=== PATIENT | female | born 1935 | race Caucasian/White ===

== ENCOUNTER 2018-09-20 13:00 | Inpatient (IN) | payer MEDICARE, BC ==
[2018-10-02] MEDS ORDERED: CEFAZOLIN 2 Gram 2 GM/50 ML BAG IVPB ONE (06:00)
[2018-10-02] MEDS ORDERED: MECLIZINE 25 MG TABLET PO ONE (06:00)
[2018-10-02] MEDS ORDERED: CELECOXIB 100 MG CAPSULE PO ONE (06:00)
[2018-10-02] MEDS ORDERED: VANCOMYCIN HCL 1,000 MG in DEXTROSE 5 % IN WATER 250 ML IVPB ONE ×2 (06:00)
[2018-10-02] MEDS ORDERED: METOCLOPRAMIDE 10 MG TABLET PO ONE (06:00)
[2018-10-02] MEDS ORDERED: FAMOTIDINE 20MG TABLET PO ONE (06:00)
[2018-10-02 12:07] LABS: ABO GROUP A; ANTIBODY SCREEN NEGATIVE (NEGATIVE); RH TYPE POSITIVE
[2018-10-02] MEDS ORDERED: ROPIVACAINE HCL (NAROPIN) /PF 5MG/ML 20ML VIAL IV ONE (14:00)
[2018-10-02] MEDS ORDERED: GLYCOPYRROLATE 0.2 MG/ML ML IV ONE (14:00)
[2018-10-02] MEDS ORDERED: PROPOFOL 10 MG/ML VIAL IV ONE (14:00)
[2018-10-02] MEDS ORDERED: LIDOCAINE 2% MDV (20MG/ML) 20ML VIAL IV ONE (14:00)
[2018-10-02] MEDS ORDERED: EPHEDRINE SULFATE 50 MG/ML ML IV ONE (14:00)
[2018-10-02] MEDS ORDERED: MIDAZOLAM HCL 2MG/2ML VIAL IV ONE (14:00)
[2018-10-02] MEDS ORDERED: DEXAMETHASONE 4 MG/ML 1ML VIAL IVP ONE (14:00)
[2018-10-02] MEDS ORDERED: BISACODYL 10 MG SUPP RC PRN (15:01)
[2018-10-02] MEDS ORDERED: TRAMADOL HCL 50 MG TABLET PO PRN (15:01)
[2018-10-02] MEDS ORDERED: NALOXONE 0.4 MG/1 ML VIAL IVP PRN (15:01)
[2018-10-02] MEDS ORDERED: HYDROMORPHONE HCL 2 MG/ML VIAL IM PRN (15:01)
[2018-10-02] MEDS ORDERED: ACETAMINOPHEN W/ CODEINE 300MG/60MG TABLET PO PRN ×2 (15:01)
[2018-10-02] MEDS ORDERED: KETOROLAC 30 MG/ML VIAL IVP PRN ×2 (15:01)
[2018-10-02] MEDS ORDERED: MAGNESIUM HYDROXIDE 30 ML UDC PO PRN (15:01)
[2018-10-02] MEDS ORDERED: ONDANSETRON HCL IV 4 MG/2 ML VIAL IVP PRN (15:01)
[2018-10-02] MEDS ORDERED: ZOLPIDEM TARTRATE 5 MG TABLET PO PRN (15:01)
[2018-10-02] MEDS ORDERED: DIPHENHYDRAMINE HCL 25 MG CAPSULE PO PRN (15:01)
[2018-10-02] MEDS ORDERED: AL HYDROX/MAG HYDROX 30ML UD PO PRN (15:01)
[2018-10-02] MEDS ORDERED: POTASSIUM CHLORIDE/D5-0.9%NACL 20 MEQ/1,000 ML BAG IV SCH (16:00)
[2018-10-02] MEDS: HYDROCODONE/APAP 10/325 TABLET PO PRN (16:14)
[2018-10-02] MEDS ORDERED: 0.9 % SODIUM CHLORIDE 1000ML 1,000 ML IV PRN ×2 (16:32→16:56)
[2018-10-02] MEDS: CEFAZOLIN 2 Gram 2 GM/50 ML BAG IVPB SCH (22:24)
[2018-10-02] MEDS: DOCUSATE SODIUM 100 MG CAPSULE PO SCH (22:28)
[2018-10-02] MEDS: ACETAMINOPHEN 500 MG TABLET PO SCH (22:28)
[2018-10-02] MEDS: SIMVASTATIN 10MG TABLET PO SCH (22:29)
[2018-10-03] MEDS: HYDROCODONE/APAP 10/325 TABLET PO PRN ×3 (00:30→18:43)
[2018-10-03] MEDS: CEFAZOLIN 2 Gram 2 GM/50 ML BAG IVPB SCH ×2 (06:12→13:38)
[2018-10-03] MEDS: PANTOPRAZOLE SODIUM 40 MG TABLET PO SCH (06:13)
[2018-10-03 08:46] LABS: HEMATOCRIT 36.5 % (35.0-47.0); HEMOGLOBIN 10.8 gm/dl (11.6-16.0)
[2018-10-03 09:05] LABS: BLOOD UREA NITROGEN 20 mg/dL (8-23); CREATININE 0.7 mg/dL (0.5-0.9); EST GLOMERULAR FILTRATION RATE > 60 mL/min; GLUCOSE,RANDOM 147 mg/dL (74-109)
[2018-10-03] MEDS ORDERED: TRANEXAMIC ACID 1,000 MG/10 ML ML IV ONE (10:55)
[2018-10-03] MEDS ORDERED: BUPIVACAINE 0.5% W/EPI MPF 30 ML VIAL IVP ONE (10:55)
[2018-10-03] MEDS: AMLODIPINE BESYLATE 5MG TAB PO SCH (10:58)
[2018-10-03] MEDS: METOPROLOL SUCC 50 MG TABLET PO SCH (10:58)
[2018-10-03] MEDS: ACETAMINOPHEN 500 MG TABLET PO SCH ×2 (10:58→21:13)
[2018-10-03] MEDS: FERROUS SULFATE 325 MG TAB PO SCH (10:59)
[2018-10-03] MEDS: DOCUSATE SODIUM 100 MG CAPSULE PO SCH ×2 (10:59→21:24)
[2018-10-03] MEDS: FUROSEMIDE 40 MG TABLET PO SCH (10:59)
[2018-10-03] MEDS: RIVAROXABAN 10 MG TABLET PO SCH (10:59)
--- NOTE | 2018-10-03 12:01 | Rehab Evaluation ---
Patient Information - Patient Information Diagnosis: R knee OA Ordered Treatment: PT Evaluate and Treat Status: Initial Evaluation Surgery: Yes (R knee TKA) Date of Surgery: 10/02/18 Past Medical/Surgical Hx: PAST MEDICAL/SURGICAL HISTORY Past Surgical History DAVID OVARIAN CYST HYST LTKA BILAT CATS C SCOPES PMH - Respiratory Hx Respiratory Disorders Yes Hx Pneumonia Yes: 2 YRS AGO PMH - Cardiovascular Hx Cardiovascular Disorders Yes Hx Deep Vein Thrombosis Yes: 20 YRS AGO Hx Hypertension Yes: GOOD CONTROL WITH MEDS Exercise Tolerance Fair PMH - Neuro Hx Neurological Disorders No PMH - GI Hx Gastrointestinal Disorders Yes Hx Gastroesophageal Reflux Yes Hx Hepatitis/Jaundice Yes: 60 YRS AGO FROM GALLBLADDER Hx Pancreatitis Yes: 60 YRS AGO PMH - Hx Genitourinary Disorders No PMH - Endocrine Hx Endocrine Disorders No PMH - Musculoskeletal Hx Musculoskeletal Disorders Yes Hx Arthritis Yes: RIGHT KNEE ANKLES AND SHOULDERS Hx Fibromyalgia Yes: POSSIBLY PMH - Psych Hx Psychiatric Problems No PMH - Hematology/Oncology Hx Hematology/Oncology Yes Disorders Hx Blood Transfusion Reaction No Premorbid Status: Detail (Prior to surgery the patient was independent with all mobility without O2.) Social History: Detail (The patient lives with spouse in an apartment with an elevator and stairs (the patient uses both at times). The bathroom is equipped with a tub/shower combination, shower bench, grab bars in shower and by toilet, hand held shower, elevated toilet with riser seat. The paitent has a 2 wheeled walker.) Precautions: [place], Fall, Other (WBAT on the R LE. Patient is currently using 2L of O2.) - Time With Patient Total Time Spent With Patient (Min): 30 Treatment Procedures: Detail (Initial Evaluation, gait training) Subjective Information - Subjective Information Per Patient (The patient had complaints of R knee pain level 4 using 0-10 pain scale.) Objective Data - Mental Status Patient Orientation: Oriented x3 - Visual Perception Appears within normal limits for therapeutic activities - ROM Not within normal limits (The patient's R knee is limited as to be expected following sugery. All other LE AROM is WNL.) - Strength/Tone Not within normal limits (The patient's R LE strength was not tested however is functional ie: patient was able to complete a SLR. The patient's L LE strength WNL.) - Bed Mobility Independent (The patient was independent with supine to and from sit transfer and scooting up in bed.) - Transfers Independent (The patient was independent with sit to and from stand transfer. The patient was independent with toilet transfer with use of grab bar.) - Balance Balance Sitting: Good Balance Standing: Good - Sensation Intact - Gait Detail (The patient ambulated with 2 L of O2 a distance of 40 feet x 1 , WBAT on the R LE with front wheeled walker with supervision for safety. O2 sat. levels remained in the 90's while ambulating however, shortness of breath was noted. The patient returned to bed. When patient returned to a supine position O2 sat levels were measured at 75. Patient was able to return to normal 90 after deep breathing for aprox 15- 20 seconds.) Therapy Assessment - Therapy Assessment Detail (The patient was independent with bed mobility and transfers and required supervision for safety with ambulation. The patient's had shortness of breath with ambulation and dropping sat levels after ambulating with 2L of O2. Feel the patient is a good subacute Rehab patient due to O2 needs and shortness of breath with activity.) Patient Education - Patient Education Teaching Topic: Exercise/Activity (The patient completed the following TKA exercises: supine heel slides, SLR, ankle pumps, quad sets, gluteal sets, hamstring sets.) Response: Return Demonstration Teaching Method: Discussion, Handout Teaching Recipient: Patient Barriers To Learning: Age Related Problem List - Problem List Physical Therapy Problem List: Detail (1) Decreased R knee AROM and strength as to be expected following surgery 2) Shortness of breath and O2 requirement with ambulation and mobility. 3) Impaired ambulation on levels and stairs s/p surgery.) Goals - Goals Physical Therapy Goals: 1) The patient will ambulate with appropriate assistive device distances of 75 to 100 feet without shortness of breath WBAT on the R LE independently. 2) The patient will demonstrate good understanding of proper technique of stair climbing and ambulate on stairs with supervision for safety only. 3) The patient will tolerate 20 to 30 minutes of physical activity with one to two rest periods. Prognosis - Prognosis Good Plan - Plan Physical Therapy Plan: PT 1-2 times a day for gait training on levels and stairs.
--- NOTE | 2018-10-03 12:38 | Rehab Evaluation ---
Patient Information - Patient Information Diagnosis: R knee OA Ordered Treatment: OT Evaluate and Treat Status: Initial Evaluation Surgery: Yes (R knee TKA) Date of Surgery: 10/02/18 Past Medical/Surgical Hx: PAST MEDICAL/SURGICAL HISTORY Past Surgical History DAVID OVARIAN CYST HYST LTKA BILAT CATS C SCOPES PMH - Respiratory Hx Respiratory Disorders Yes Hx Pneumonia Yes: 2 YRS AGO PMH - Cardiovascular Hx Cardiovascular Disorders Yes Hx Deep Vein Thrombosis Yes: 20 YRS AGO Hx Hypertension Yes: GOOD CONTROL WITH MEDS Exercise Tolerance Fair PMH - Neuro Hx Neurological Disorders No PMH - GI Hx Gastrointestinal Disorders Yes Hx Gastroesophageal Reflux Yes Hx Hepatitis/Jaundice Yes: 60 YRS AGO FROM GALLBLADDER Hx Pancreatitis Yes: 60 YRS AGO PMH - Hx Genitourinary Disorders No PMH - Endocrine Hx Endocrine Disorders No PMH - Musculoskeletal Hx Musculoskeletal Disorders Yes Hx Arthritis Yes: RIGHT KNEE ANKLES AND SHOULDERS Hx Fibromyalgia Yes: POSSIBLY PMH - Psych Hx Psychiatric Problems No PMH - Hematology/Oncology Hx Hematology/Oncology Yes Disorders Hx Blood Transfusion Reaction No Premorbid Status: Detail (Prior to surgery the patient was independent with all mobility, light home mgmt, meal prep and laundry. Spouse assisted with vacuumming.) Social History: Detail (The patient lives with spouse in a second floor apartment with an elevator and stairs (the patient uses both at times). The bathroom is equipped with a tub/shower combination, shower bench, grab bars and hand held shower and a standard height toilet with riser seat. The patient has a 2 wheeled walker.) Precautions: [place], Fall, Other (WBAT on the R LE. Patient is currently using 2L of O2.) - Time With Patient Total Time Spent With Patient (Min): 40 Treatment Procedures: Detail (OT eval low complexity) Subjective Information - Subjective Information Per Patient Objective Data - Pain Pain Present: Yes (12/07) - Mental Status Patient Orientation: Oriented x3 - Visual Perception Appears within normal limits for therapeutic activities - ROM Within normal limits (Reynold UE AROM WNL) - Strength/Tone Within normal limits (Reynold UE strength WNL although patient reports shoulder arthritis that bothers her at times.) - Coordination Appears within normal limits for therapeutic activities - Bed Mobility Independent (Ind with supine to sit, sit to supine and scooting up in bed.) - Transfers Independent (Ind with sit to stand from chair and EOB heights.) - Balance Balance Sitting: Good Balance Standing: Good - Sensation Intact - Gait Detail (Pt ambulating in room with 2 wheeled walker and 2 liters of oxygen. She was very fatigued and short of breath.) - ADL's/IADL's Detail (Pt educated and able to demonstrate learning of modified LE dressing techniques including donning pants and slip on shoes. She had difficulty donning bra and socks due to fatigue.) Therapy Assessment - Therapy Assessment Detail (Pt presents with significant fatigue with mobility and self cares. She is currently using 2 liters of oxygen. Pt would benefit from continued therapy in a subacute setting to maximize safety and Ind with self cares and functional mobility as well as IADL tasks.) Problem List - Problem List Physical Therapy Problem List: Detail (1) Decreased R knee AROM and strength as to be expected following surgery 2) Shortness of breath and O2 requirement with ambulation and mobility. 3) Impaired ambulation on levels and stairs s/p surgery.) Occupational Therapy Problem List: Detail (1. Decreased endurance needed for safe and Ind ADLs/IADLs. 2. Decreased Ind with total body dressing.) Goals - Goals Physical Therapy Goals: 1) The patient will ambulate with appropriate assistive device distances of 75 to 100 feet without shortness of breath WBAT on the R LE independently. 2) The patient will demonstrate good understanding of proper technique of stair climbing and ambulate on stairs with supervision for safety only. 3) The patient will tolerate 20 to 30 minutes of physical activity with one to two rest periods. Occupational Therapy Goals: 1. Pt will be safe and Ind with total body dressing using modified dressing techniques. 2. Pt will demonstrate improved endurance to allow Ind with IADLs. Prognosis - Prognosis Good Plan - Plan Physical Therapy Plan: PT 1-2 times a day for gait training on levels and stairs. Occupational Therapy Plan: OT 2-4 times per week until discharge. Recommend short IP rehab stay to ensure safety and Ind with ADLs/IADLs.
[2018-10-03] MEDS: POTASSIUM CHLORIDE 20 MEQ TABLET PO SCH (13:00)
--- NOTE | 2018-10-03 14:54 | Physical Therapy Tx Note ---
Physical Therapy Tx Note - Treatment Note Physical Therapy Tx Note: Detail (The patient declined ambulation this pm secondary to fatigue and she was just up with nursing staff.) Physical Therapy Problem List: Detail (1) Decreased R knee AROM and strength as to be expected following surgery 2) Shortness of breath and O2 requirement with ambulation and mobility. 3) Impaired ambulation on levels and stairs s/p surgery.) Physical Therapy Goals: 1) The patient will ambulate with appropriate assistive device distances of 75 to 100 feet without shortness of breath WBAT on the R LE independently. 2) The patient will demonstrate good understanding of proper technique of stair climbing and ambulate on stairs with supervision for safety only. 3) The patient will tolerate 20 to 30 minutes of physical activity with one to two rest periods. Physical Therapy Plan: PT 1-2 times a day for gait training on levels and stairs.
[2018-10-03] MEDS: ACETAMINOPHEN 325 MG TAB PO PRN (15:54)
[2018-10-03] MEDS: SIMVASTATIN 10MG TABLET PO SCH (21:12)
[2018-10-04] MEDS: HYDROCODONE/APAP 10/325 TABLET PO PRN ×3 (01:45→22:57)
--- NOTE | 2018-10-04 05:38 | RADIOLOGY REPORT ---
EXAM: PORTABLE CHEST HISTORY: REHAB PLACEMENT. TECHNIQUE: A single frontal view of the chest was obtained. Comparison: None. FINDINGS: The cardiac silhouette is top normal in size. The thoracic aorta is calcified and tortuous. Large rounded retrocardiac opacity. Asymmetric elevation of the right hemidiaphragm. Patchy opacities in the left lung base, favor atelectasis. No definable pleural fluid collection or visible pneumothorax. IMPRESSION: 1. LEFT LUNG BASE OPACITIES, APPEARANCE MOST SUGGESTIVE OF ATELECTASIS. 2. LARGE ROUNDED RETROCARDIAC OPACITY; MAY REPRESENT A HIATAL HERNIA. JOB NUMBER: [id number] [facility]
[2018-10-04] MEDS: PANTOPRAZOLE SODIUM 40 MG TABLET PO SCH (06:08)
[2018-10-04 06:41] LABS: HEMATOCRIT 34.2 % (35.0-47.0); HEMOGLOBIN 9.9 gm/dl (11.6-16.0)
[2018-10-04 06:55] LABS: BLOOD UREA NITROGEN 20 mg/dL (8-23); CREATININE 0.8 mg/dL (0.5-0.9); EST GLOMERULAR FILTRATION RATE > 60 mL/min; GLUCOSE,RANDOM 109 mg/dL (74-109)
[2018-10-04] MEDS: ACETAMINOPHEN 325 MG TAB PO PRN ×3 (07:30→16:45)
--- NOTE | 2018-10-04 08:40 | Operative Note ---
DATE OF SURGERY: 10/02/2018 PREOPERATIVE DIAGNOSIS: End-stage arthrosis of the right knee. POSTOPERATIVE DIAGNOSIS: End-stage arthrosis of the right knee. OPERATION: Cemented right total knee arthroplasty using Gill and Nephew Lesli II components with a size 4 cobalt chrome femur, a size 3 stem tibia baseplate, a 9 mm lipped tibial insert, and a 35 mm all plastic patella. Staff Surgeon: Rober Lubin MD Anesthesia: Spinal. PREPARATION: Chloraprep. INDIVIDUAL CONSIDERATIONS: None. PROCEDURE: The patient was taken to the operating room, placed supine on the operating room table. She had a successful induction of spinal anesthetic. The right lower extremity was prepped and draped in the usual fashion. The limb was elevated and tourniquet was inflated to 250 mmHg. The patient had a midline approach to the knee. Sharp dissection carried down through skin and subcutaneous tissue. Small veins were coagulated with a Bovie. A medial arthrotomy was performed. The patella was everted and the knee was flexed. The patient had exposed bone on the medial and especially lateral compartment and in the patellofemoral compartment. Fat pad was resected, ACL was sacrificed, provisional anterior meniscectomies were performed. The capsule was released from the medial proximal tibia. The initial femoral co pilot hole was then made freehand. The intramedullary femoral cutting jig was placed. It was cut in 7.0 degrees of valgus and adjusted for rotation and secured with pins for a 10 mm resection. The initial transverse cut was then made. The skin guide was placed in the anterior and posterior co pilot holes. It was found that a size 4 would be appropriate. The anterior and posterior cuts followed by chamfer cuts were made. Osteophytes removed, and a size 4 trial was placed and found to fit well. The tibia was brought forward, and the remainder of the meniscal remnants removed with a Bovie. The extraarticular tibial cutting jig was placed. It was cut in neutral with a 3-degree AP slope. Care was taken to adjust for rotation and flexion using the extraarticular alignment guide and bony landmarks. It was set for a 9 mm resection keyed off the high medial side and secured with pins. When cutting the tibia, care was taken to preserve the PCL insertion on the tibia. After removing osteophytes, I could fit a size 3 baseplate trial. It was adjusted for rotation and secured with pins. With a 9 mm lipped trial and femoral trial, there was excellent motion and stability, ligamentous balance, rotation alignment, patellofemoral tracking were normal. No lateral release was required. The femoral co pilot holes were impacted and the tri-flange tibial stamp was impacted and these trial components were removed. The tourniquet was let down briefly to get bleeders posteriorly and then placed back up again. I then thoroughly irrigated out the knee with pulsatile Betadine and saline to remove any visual or palpable debris. Bone surfaces were then dried. A size 3 stem tibia baseplate was cemented into place followed by impaction of the 9 mm lipped tibial insert followed by cementing in the size 4 cobalt chrome femur followed by cementing in the 35 mm patella. The implant surfaces were compressed, excess cement was removed, and after the cement had set, there was excellent motion and stability, ligamentous balance, rotation alignment, and patellofemoral tracking were normal. No lateral release was required. Again thorough irrigation to remove visual or palpable debris. Tourniquet was let down. Hemostasis was obtained with a Bovie. I then infiltrate the skin, subcutaneous tissue, and periosteum with 30 mL of 0.5% Marcaine with epinephrine. The capsule was then closed with a running #2 quill, subcu was closed in layers with running 0 quill, skin was closed with randy. The patient did receive 1 g of tranexamic acid preoperatively IV. I mixed 1 g of tranexamic acid with 30 mL of saline and injected into the knee through a sterile 18-gauge needle and a sterile bulky compressive dressing was applied. The patient tolerated the procedure well. Needle and sponge counts were correct. Estimated blood loss was minimal, and she was taken back to recovery in good condition. There were no complications. HAYLEE
[2018-10-04] MEDS: ACETAMINOPHEN 500 MG TABLET PO SCH ×2 (09:19→22:59)
[2018-10-04] MEDS: METOPROLOL SUCC 50 MG TABLET PO SCH (09:22)
[2018-10-04] MEDS: RIVAROXABAN 10 MG TABLET PO SCH (09:22)
[2018-10-04] MEDS: FERROUS SULFATE 325 MG TAB PO SCH (09:23)
[2018-10-04] MEDS: DOCUSATE SODIUM 100 MG CAPSULE PO SCH ×2 (09:23→22:57)
[2018-10-04] MEDS: POTASSIUM CHLORIDE 20 MEQ TABLET PO SCH (09:23)
[2018-10-04] MEDS: AMLODIPINE BESYLATE 5MG TAB PO SCH (09:24)
[2018-10-04] MEDS: FUROSEMIDE 40 MG TABLET PO SCH (09:24)
--- NOTE | 2018-10-04 11:49 | Physical Therapy Tx Note ---
Physical Therapy Tx Note - Treatment Note Tolerated: Good Total Time Spent With Patient: 25 Physical Therapy Tx Note: Detail (Pt in bed upon arrival, awake/alert, cooperative for therapy. Respiratory therapist present to assess O2 sat with mobility. Independent with bed mobility with HOB elevated; good sitting balance. Assisted to don robe. Ambulated from bedside out to hallway and back to bathroom with front wheeled walker and contact guard assist, supervision for toilet transfers, ambulated to bedside chair. Total ambulation distance was about 85 feet. Pt reported little pain/discomfort; O2 sat ranged from 86% to 94 %. RT was to re-assess O2 sat w/o supplemental oxygen while pt was sitting up. Pt left up in chair w/bedside table and call light in reach. Nrsg notified.) Physical Therapy Problem List: Detail (1) Decreased R knee AROM and strength as to be expected following surgery 2) Shortness of breath and O2 requirement with ambulation and mobility. 3) Impaired ambulation on levels and stairs s/p surgery.) Physical Therapy Goals: 1) The patient will ambulate with appropriate assistive device distances of 75 to 100 feet without shortness of breath WBAT on the R LE independently. 2) The patient will demonstrate good understanding of proper technique of stair climbing and ambulate on stairs with supervision for safety only. 3) The patient will tolerate 20 to 30 minutes of physical activity with one to two rest periods. Physical Therapy Plan: PT 1-2 times a day for gait training on levels and stairs.
[2018-10-04] MEDS ORDERED: TRANEXAMIC ACID 1,000 MG/10 ML ML IV ONE (16:03)
[2018-10-04] MEDS ORDERED: 0.9 % SODIUM CHLORIDE 10 ML VIAL IVP ONE (16:03)
[2018-10-04 16:21] LABS: BASO % 0.3 % (0-6); EOS % 3.7 % (0-6); GRAN % 77.9 % (47-80); HEMATOCRIT 36.5 % (35.0-47.0); HEMOGLOBIN 10.8 gm/dl (11.6-16.0); LYMPH % 9.6 % (16-45); MEAN CELL VOLUME 88.8 fl (81-97); MEAN CORPUSCULAR HEMOGLOBIN 26.2 pg (27-33); MEAN CORPUSCULAR HGB CONC 29.6 g/dl (32-36); MEAN PLATELET VOLUME 10.1 fl (7.4-10.4); MONO % 8.5 % (0-9); PLATELET COUNT 331 K/uL (130-400); RED BLOOD COUNT 4.11 M/uL (3.80-5.40); RED CELL DISTRIBUTION WIDTH 18.1 % (11.5-14.5); WHITE BLOOD COUNT W/O DIFF 11.5 K/uL (4.2-12.2)
[2018-10-04 16:32] LABS: INR 1.2; PARTIAL THROMBOPLASTIN TIME 32.4 SECONDS (24.5-39.1)
[2018-10-04 16:33] LABS: BLOOD UREA NITROGEN 16 mg/dL (8-23); CREATININE 0.7 mg/dL (0.5-0.9); EST GLOMERULAR FILTRATION RATE > 60 mL/min
[2018-10-04 16:36] LABS: GLUCOSE,RANDOM 124 mg/dL (74-109)
--- NOTE | 2018-10-04 16:38 | Consult ---
Consult Order Detail - Reason for Consult Consult Date: 10/04/18 Consult Order Detail: Continued need for oxygen supplementation post op right TKA 10/02/18 - Chief Complaint Chief Complaint: PRIMARY OSTEOARTHRITIS RIGHT KNEE HPI Consult - History of Present Illness Admitting Diagnosis: djd right knee History of Present Illness: Medical team consulted today by request of Dr Lubin for persistent hypoxia s/p elective right TKA 10/02/2018. Katalina Vidales is an otherwise healthy 83 y/o female with no previous chronic respiratory illness that has required 4L O2 since right TKA. Nursing reports she desats to SPO2 in the 80s at night and is in the upper 80s on room air at rest during the day.Patient denies any previous hx of MONA, COPD or asthma. She does not a hx of bilat DVT 26 years ago and has had no problems since. Was not on long-term anticoagulation therapy prior to surgery and is currently taking Xarelto 10mg as post-op VTE prophylaxis. She has remained afebrile, no significant saturation of PCOS dressing. SCD have been in place since surgery. She denies chest pain, palpitations or MARY but does report significant fatigue that is worsening while getting out of bed and when she is without oxygen. Past medical history includes OA, edema, GERD, HTN, hyperlipidemia Pre op: Hgb 11.2-->10.8 (3/6)--> 9.8 (3/), EKG NSR, BUN/Cr 32/1.0, CXR atelectasis and retrocardiac opacity most likely a hiatal hernia. Plan 1- CBC, BMP, Coags, BNP, troponin, 2 view CXR, 12 lead EKG 2- CT chest r/o embolism 3- On VTE prophylaxis Xarelto 10mg QD ROS Reviewed: No additional complaints except as noted below Constitutional: Reports: As per HPI Eyes: Reports: As per HPI - ENT ENT: Reports: As per HPI - Respiratory Respiratory: Reports: As per HPI. Denies: Cough, Dyspnea, Hemoptysis, Wheezes - Cardiovascular Cardiovascular: Reports: As per HPI. Denies: Chest pain, Dyspnea on exertion, Edema, Orthopnea, Palpitations, Syncope - Gastrointestinal Gastrointestinal: Reports: As per HPI. Denies: Abdominal pain, Constipation, Diarrhea, Hematemesis, Hematochezia, Melena, Nausea, Vomiting - Genitourinary Genitourinary: Reports: As per HPI. Denies: Dysuria, Frequency, Urgency - Musculoskeletal Musculoskeletal: Reports: As per HPI - Skin Skin: Reports: As per HPI - Neurological Neurological: Reports: As per HPI. Denies: Confusion - Psychiatric Psychiatric: Reports: As per HPI. Denies: Anxiety, Depression - Hematological/Lymphatic Hematological/Lymphatic: Reports: As per HPI Past Medical History - SOCIAL HISTORY Smoking Status: Never smoker Alcohol Use: None Drug Use: None - RESPIRATORY Hx Respiratory Disorders: Yes Hx Pneumonia: Yes (2 YRS AGO) - CARDIOVASCULAR Hx Cardio Disorders: Yes Hx Deep Vein Thrombosis: Yes (20 YRS AGO) Hx Hypertension: Yes (GOOD CONTROL WITH MEDS) - NEURO Hx Neuro Disorders: No - GI Hx GI Disorders: Yes Hx Reflux: Yes Hx Hepatitis/Jaundice: Yes (60 YRS AGO FROM GALLBLADDER) Hx Pancreatitis: Yes (60 YRS AGO) Hx of Polyps: Yes (COLON BENIGN) - Hx Genitourinary Disorders: No - ENDOCRINE Hx Endocrine Disorders: No - MUSCULOSKELETAL Hx Musculoskeletal Disorders: Yes Hx Arthritis: Yes (RIGHT KNEE ANKLES AND SHOULDERS) Hx Fibromyalgia: Yes (POSSIBLY) - PSYCH Hx Psych Problems: No - HEMATOLOGY/ONCOLOGY Hx Hematology/Oncology Disorders: Yes Hx Blood Transfusions: Yes Hx Blood Transfusion Reaction: No Family Medical History Any Significant Family History?: No Hx Cancer: Brother/Sister Hx Heart Disease: Mother Hx Stroke: Father H&P Meds - Home Medications and Allergies Allergies Allergy/AdvReac Type Severity Reaction Status Date / Time Sulfa (Sulfonamide AdvReac NAUSEA AND Verified 09/13/18 15:17 Antibiotics) VOMITING Physical Exam - Vital Signs Vital Signs: Vital Signs - Last 24 Hrs Temp Pulse Pulse Resp BP Pulse Ox 10/04/18 15:15 56 L 16 142/63 95 10/04/18 14:26 68 20 88 L 10/04/18 13:40 97.8 F 59 L 16 143/60 94 L 10/04/18 11:06 86 18 94 L 10/04/18 09:15 97.6 F 64 18 138/60 94 L 10/04/18 07:46 93 L 10/04/18 06:13 98.1 F 61 16 137/60 91 L 10/04/18 03:00 98.5 F 70 16 112/58 96 10/03/18 22:00 95 10/03/18 21:00 16 10/03/18 19:13 97 10/03/18 19:00 98.6 F 74 16 114/50 95 - General General Appearance: Alert, Oriented x3, Cooperative, No acute distress - Head Head exam: Atraumatic, Normocephalic - Eye Eye exam: Normal appearance, EOMI. negative: Periorbital swelling - ENT ENT exam: Mucous membranes moist - Neck Neck exam: Full ROM - Respiratory Respiratory exam: Rales (RLL) - Cardiovascular Cardiovascular Exam: Regular rate, Normal rhythm, Normal heart sounds Peripheral Pulses: 2+: Dorsalis Pedis (R), Dorsalis Pedis (L) - GI/Abdominal GI/Abdominal exam: Soft, Normal bowel sounds. negative: Distended - Extremities Extremities exam: Joint swelling (right knee, dressing intact, no saturation). negative: Calf tenderness, Pedal edema - Back Back exam: Reports: Normal inspection - Neurological Neurological exam: Alert, Normal gait, Oriented X3 - Psychiatric Psychiatric exam: Normal affect, Normal mood - Skin Skin exam: Dry, Intact, Normal color, Pallor, Warm Results - Labs Result Diagrams: 10/04/18 16:09 10/04/18 16:09 Labs Last 24 Hours: Laboratory Results - last 24 hr 10/04/18 10/04/18 10/04/18 06:32 06:32 15:25 WBC RBC Hgb 9.9 L Hct 34.2 L MCV MCH MCHC RDW Plt Count MPV Gran % Lymphocytes % Monocytes % Eosinophils % Basophils % Fibrinogen Cancelled Lupus Anticoagulant Cancelled LA Mixing Study Interp Cancelled Lupus Anticoag aPTT Cancelled LA PTT Baseline Cancelled Protein C Activity Cancelled APC - PTT Baseline Cancelled Protein S Activity Cancelled Antithrombin III Activ Cancelled Factor V Leiden Cancelled Sodium 142 Potassium 4.5 Chloride 106 Carbon Dioxide 27.0 Anion Gap 9.0 BUN 20 Creatinine 0.8 Estimated GFR > 60 Random Glucose 109 Calcium 8.7 L Homocysteine Cancelled Anti-Cardiolipin IgG Ab Cancelled Anti-Cardiolipin IgM Ab Cancelled Cardiolipin Ab Comment Cancelled Prothrombin [id number] Mut Cancelled 10/04/18 16:09 WBC 11.5 RBC 4.11 Hgb 10.8 L Hct 36.5 MCV 88.8 MCH 26.2 L MCHC 29.6 L RDW 18.1 H Plt Count 331 MPV 10.1 Gran % 77.9 Lymphocytes % 9.6 L Monocytes % 8.5 Eosinophils % 3.7 Basophils % 0.3 Fibrinogen Lupus Anticoagulant LA Mixing Study Interp Lupus Anticoag aPTT LA PTT Baseline Protein C Activity APC - PTT Baseline Protein S Activity Antithrombin III Activ Factor V Leiden Sodium Potassium Chloride Carbon Dioxide Anion Gap BUN Creatinine Estimated GFR Random Glucose Calcium Homocysteine Anti-Cardiolipin IgG Ab Anti-Cardiolipin IgM Ab Cardiolipin Ab Comment Prothrombin [id number] Mut - Imaging and Cardiology Chest x-ray Status: Report reviewed (No acute process, unchanged from previous) Assessment and Plan - Assessment and Plan (1) Hypoxia Status: Acute Base Code: R09.02 - HYPOXEMIA Comment: 10/04/18 - consult complete - CBC with improvement of hgb from this am 9.8-->10.8 - BMP unremarkable - Coags unremarkable - D-dimer elevation but to be expected s/p surgery - EKG NSR, unchanged from previous 12/02/2017 - BNP normal - Troponin <0.010 - Chest CTA negative for embolism - Continue to have respiratory decompensation, requiring 12L venti mask to keep SPO2 above 88% - Discussed case with Dr Russell Jessica Hospitalist and accepted transfer to step-down bed - Dr Lubin aware of consult recommendations (2) Status post total right knee replacement Status: Acute Base Code: Z96.651 - PRESENCE OF RIGHT ARTIFICIAL KNEE JOINT Comment: 10/04/18 - Keep PCOS dressing in place per protocol
[2018-10-04] MEDS: SIMVASTATIN 10MG TABLET PO SCH (22:59)
--- NOTE | 2018-10-05 05:12 | RADIOLOGY REPORT ---
EXAM: CHEST, TWO VIEWS HISTORY: HYPOXIA. TECHNIQUE: Two views of the chest were obtained. Comparison: Chest radiograph 10/03/18. FINDINGS: The cardiac silhouette is unchanged in size. Asymmetric elevation of the right hemidiaphragm once again noted. Retrocardiac opacity and left basilar opacities are again noted, similar from prior. No new focal lung findings. No visible pneumothorax. IMPRESSION: SIMILAR APPEARANCE OF LEFT BASILAR AND RETROCARDIAC OPACITIES SINCE PRIOR STUDY. NO NEW FOCAL LUNG FINDINGS. JOB NUMBER: [id number] [facility]
--- NOTE | 2018-10-05 05:19 | CT ANGIOGRAM REPORT ---
EXAM: CT ANGIOGRAPHY OF THE THORAX HISTORY: RECENT KNEE SURGERY, ELEVATED D-DIMER. HYPOXIA. TECHNIQUE: CT angiography of the thorax was performed following intravenous contrast administration. The type and amount of contrast are recorded in the medical record. Coronal and sagittal post processed MIP images are performed on an independent workstation as part of this examination. Comparison: Chest x-ray 10/04/18. FINDINGS: No pulmonary emboli are seen. No aortic aneurysm or aortic dissection. No mediastinal mass. No enlarged mediastinal or hilar lymph nodes. The heart is not enlarged. There is a moderate sized hiatal hernia with some adjacent compressive atelectasis. There are mild dependent congestive changes in the posterior lungs. There is no focal area of lung consolidation. There is a 6 mm calcified nodule in the posterior right lung. No other lung mass or lung nodule identified. The gallbladder is surgically absent. The upper abdomen is otherwise unremarkable. IMPRESSION: 1. NO PULMONARY EMBOLI. NO AORTIC ANEURYSM OR AORTIC DISSECTION. 2. MODERATE SIZED HIATAL HERNIA. 3. 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 4. PRIOR CHOLECYSTECTOMY. JOB NUMBER: [id number] [facility]
[2018-10-05] MEDS ORDERED: POTASSIUM CHLORIDE 10 MEQ TAB PO SCH (10:00)
--- NOTE | 2018-10-06 13:00 | Discharge Summary ---
DATE OF ADMISSION: 10/02/18 DATE OF DISCHARGE: 10/05/18 DATE OF SURGERY: 10/02/18 HISTORY: Katalina is a delightful 83-year-old female who presents with end-stage arthrosis of her right knee. She was admitted after right total knee arthroplasty. Postoperatively, she did well. Her hospital course was unremarkable. DISCHARGE INSTRUCTIONS: The plan is to discharge her to an extended care facility and rehab. She will be given Tylenol #4 for pain and she will be taking Xarelto for DVT prophylaxis. She needs to take only two additional doses of Xarelto; her last dose will be on October 07. Starting October 08 she should take a regular Aspirin daily for 30 days. Her sutures should be removed two weeks postoperatively, which will be on the and she should follow-up in my office in four weeks. She does have a REX-type dressing that needs to stay on for up to seven days postoperatively the vacuum pump and dressing can just be removed. FINAL DIAGNOSIS/PRIMARY DIAGNOSIS: END-STAGE ARTHROSIS OF THE RIGHT KNEE. OPERATIONS AND PROCEDURES: CEMENTED RIGHT TOTAL KNEE ARTHROPLASTY. DISCHARGE CONDITION: GOOD. JOB NUMBER: [id number] [facility]
== END 2018-10-05 03:10 | disposition short-term general hospital (02) | DRG 470 ==
LOC: SUR 10-02 10:43 → MEDSURG 10-02 10:43 → EDSTATUS 10-02 13:00 → SUR 10-02 15:31 → MEDSURG 10-02 15:31
PROVIDERS: ADMIT Orthopaedic Surgery; ATTEND Orthopaedic Surgery
PROC: 0SRC069 Replacement of Right Knee Joint with Oxidized Zirconium on Polyethylene Synthetic Substitute, Cemented, Open Approach (ICD-10-PCS; principal; 2018-10-02 13:00)
DX: M17.11 Unilateral primary osteoarthritis, right knee (principal); I10 Essential (primary) hypertension; E78.00 Pure hypercholesterolemia, unspecified; Z86.718 Personal history of other venous thrombosis and embolism
CPT/HCPCS: 71045; 71046; 71275; 76942; 80048; 83880; 84484; 85014; 85018; 85025; 85379; 85610; 85730; 86850; 86900; 86901; 93005; 94760; 94761; 97530; C1776; J2405; J7060